=== PATIENT | male | born 1985 | race American Indian/Alaskan Native ===

== ENCOUNTER 2016-09-05 08:19 | Emergency (ER) | payer BC ==
[2016-09-05 08:32] VITALS: BP 119/94
[2016-09-05] MEDS ORDERED: MOTRIN PO ONE (12:09)
[2016-09-05] MEDS ORDERED: ULTRAM PO ONE (12:09)
--- NOTE | 2016-09-05 13:29 | Emergency Department Report ---
ED ENT HPI - General Chief complaint: Sore Throat Stated complaint: SORE THROAT/dental pain Source: patient Mode of arrival: Ambulatory Limitations: No Limitations - History of Present Illness Initial comments: 31 year old male presents to ED with sore throat and dental pain, and left ear pain x4 days. patient is stable, neurologically intact and in no acute distress. patient denies fever, cough, difficulty breathing, drainage, N/V. MD complaint: tooth pain, sore throat, ear pain, difficulty swallowing -: Gradual, days(s) (4) Location: L ear, throat 1 - dental pain Severity: mild Quality: aching Consistency: constant Improves with: NSAID Worsens with: swallowing, eating Context- Dental: history of dental caries, poor dental care Associated Symptoms: toothache, pain with swallowing, sore throat. denies: fever, cough, discharge from ear - Related Data Previous Rx's Medication Instructions Recorded Last Taken Type Acyclovir [Zovirax] 200 mg PO 5XD #40 cap 07/20/13 Unknown Rx Amoxicillin/K Clav Tab [Augmentin 1 tab PO BID #20 tablet 07/20/13 Unknown Rx 875MG] Ibuprofen [Motrin] 600 mg PO Q8H PRN #60 tablet 07/20/13 Unknown Rx Promethazine /Codeine 5 ml PO Q6H PRN #120 udc 07/20/13 Unknown Rx [Phenergan/Codeine 6.25-10 mg/5 ml] predniSONE [Deltasone] 50 mg PO QDAY #5 tab 07/20/13 Unknown Rx Amoxicillin 500 mg PO TID #30 capsule 09/05/16 Unknown Rx Allergies Allergy/AdvReac Type Severity Reaction Status Date / Time No Known Allergies Allergy Verified 07/20/13 07:43 ED Dental HPI - General Chief complaint: Sore Throat Stated complaint: SORE THROAT Source: patient Mode of arrival: Ambulatory Limitations: No Limitations - Related Data Previous Rx's Medication Instructions Recorded Last Taken Type Acyclovir [Zovirax] 200 mg PO 5XD #40 cap 07/20/13 Unknown Rx Amoxicillin/K Clav Tab [Augmentin 1 tab PO BID #20 tablet 07/20/13 Unknown Rx 875MG] Ibuprofen [Motrin] 600 mg PO Q8H PRN #60 tablet 07/20/13 Unknown Rx Promethazine /Codeine 5 ml PO Q6H PRN #120 udc 07/20/13 Unknown Rx [Phenergan/Codeine 6.25-10 mg/5 ml] predniSONE [Deltasone] 50 mg PO QDAY #5 tab 07/20/13 Unknown Rx Amoxicillin 500 mg PO TID #30 capsule 09/05/16 Unknown Rx Allergies Allergy/AdvReac Type Severity Reaction Status Date / Time No Known Allergies Allergy Verified 07/20/13 07:43 ED Review of Systems ROS: Stated complaint: SORE THROAT Other details as noted in HPI Constitutional: denies: chills, fever Eyes: denies: eye pain, eye discharge, vision change ENT: ear pain, throat pain, dental pain Respiratory: denies: cough, shortness of breath, wheezing Cardiovascular: denies: chest pain, palpitations Endocrine: no symptoms reported Gastrointestinal: denies: abdominal pain, nausea, diarrhea Genitourinary: denies: urgency, dysuria Musculoskeletal: denies: back pain, joint swelling, arthralgia Skin: denies: rash, lesions Neurological: denies: headache, weakness, paresthesias Psychiatric: denies: anxiety, depression Hematological/Lymphatic: denies: easy bleeding, easy bruising ED Past Medical Hx - Past Medical History Previous Medical History?: No - Surgical History Past Surgical History?: No - Social History Smoking Status: Current Every Day Smoker Substance Use Type: Alcohol, Non Opiate Pain - Medications Home Medications: Home Medications Medication Instructions Recorded Confirmed Last Taken Type Acyclovir [Zovirax] 200 mg PO 5XD #40 cap 07/20/13 Unknown Rx Amoxicillin/K Clav Tab [Augmentin 1 tab PO BID #20 tablet 07/20/13 Unknown Rx 875MG] Ibuprofen [Motrin] 600 mg PO Q8H PRN #60 tablet 07/20/13 Unknown Rx Promethazine /Codeine 5 ml PO Q6H PRN #120 udc 07/20/13 Unknown Rx [Phenergan/Codeine 6.25-10 mg/5 ml] predniSONE [Deltasone] 50 mg PO QDAY #5 tab 07/20/13 Unknown Rx Amoxicillin 500 mg PO TID #30 capsule 09/05/16 Unknown Rx ED Physical Exam - General Limitations: No Limitations General appearance: alert, in no apparent distress - Head Head exam: Present: atraumatic, normocephalic - Eye Eye exam: Present: normal appearance, PERRL, EOMI - ENT ENT exam: Present: normal exam, mucous membranes moist, TM's normal bilaterally , other (no uvula displacement. no tonsilar swelling/abscess present. ) - Neck Neck exam: Present: normal inspection, full ROM, lymphadenopathy (mild left submandibular lymphadnopathy) - Respiratory Respiratory exam: Present: normal lung sounds bilaterally. Absent: respiratory distress - Cardiovascular Cardiovascular Exam: Present: regular rate, normal rhythm. Absent: systolic murmur, diastolic murmur, rubs, gallop - GI/Abdominal GI/Abdominal exam: Present: soft, normal bowel sounds. Absent: tenderness, guarding - Rectal Rectal exam: Present: deferred - Extremities Exam Extremities exam: Present: normal inspection - Back Exam Back exam: Present: normal inspection - Neurological Exam Neurological exam: Present: alert, oriented X3, normal gait - Psychiatric Psychiatric exam: Present: normal affect, normal mood - Skin Skin exam: Present: warm, dry, intact, normal color. Absent: rash ED Course Vital Signs 09/05/16 09/05/16 08:28 12:53 Temperature 98.3 F Pulse Rate 89 Respiratory 20 18 Rate Blood Pressure 119/94 O2 Sat by Pulse 99 Oximetry ED Medical Decision Making - Medical Decision Making 31 year old male presents to ED with dental pain, sore throat and left ear pain x4 days. patient states he went to dentist and dentist recommended dental procedure on left lower tooth but he could not afford it financially. patient states he has had mild left sided mouth/jaw swelling for 3 days and sore throat. patient will be started on RX for amoxicllin for possible dental procedure/dental swelling and understands he needs to return to dentist for recommended procedure. patient is stable, neurologically intact and in no acute distress. patient states he will schedule appointment with dentist next week. patient has decreased pain after medication during ED visit and understands to continue Motrin 800mg every 6 hours for swelling. patient also understands to return to ED if swelling worsens or he develops any difficultly breathing. Critical care attestation.: If time is entered above; I have spent that time in minutes in the direct care of this critically ill patient, excluding procedure time. ED Disposition Clinical Impression: Tooth ache Disposition: DISCHARGED TO HOME OR SELFCARE Is pt being admited?: No Does the pt Need Aspirin: No Condition: Stable Instructions: Dental Caries (ED), Toothache (ED) Prescriptions: Amoxicillin 500 mg PO TID #30 capsule Referrals: PRIMARY CARE,MD [Primary Care Provider] - 2-3 Days (Dentist) Forms: Work/School Release Form(ED)
== END 2016-09-05 13:29 | disposition home or self-care (01) ==
LOC: ED 08:19
DX: K08.89 Other specified disorders of teeth and supporting structures (principal); F17.200 Nicotine dependence, unspecified, uncomplicated
CPT/HCPCS: 99282